=== PATIENT | male | born 1985 | race Hispanic/Latino ===

== ENCOUNTER 2017-06-19 16:41 | Emergency (ER) | payer SELFPAY ==
[2017-06-19 17:19] LABS: APPEARANCE,URINE Clear (CLEAR); BILIRUBIN,URINE Negative (NEGATIVE); COLOR,URINE Yellow (YELLOW); GLUCOSE, URINE (UA) >=1000 mg/dL (NEGATIVE); KETONES,URINE Negative (NEGATIVE); LEUKOCYTE ESTERASE ,URINE Trace (NEGATIVE); NITRATE,URINE Negative (NEGATIVE); OCCULT BLOOD,URINE Negative (NEGATIVE); PROTEIN,URINE Negative (NEGATIVE); UROBILINOGEN,URINE 0.2 mg/dL (0.2-1.0)
[2017-06-19 17:37] LABS: RBC,URINE 0-1 /HPF (0-1)
[2017-06-19 17:38] LABS: BACTERIA,URINE Rare /HPF (None Seen); SQUAMOUS EPITHELIAL CELL,UR Rare /LPF (0-2); YEAST,URINE BUDDING Few /HPF (None Seen)
== END 2017-06-19 18:30 | disposition home or self-care (01) ==
LOC: EDH 16:41
DX: N47.6 Balanoposthitis (principal)
CPT/HCPCS: 76770; 81001

== ENCOUNTER 2017-07-20 08:25 | Emergency (ER) | payer SELFPAY ==
[2017-07-20 08:47] LABS: APPEARANCE,URINE Cloudy (CLEAR); BILIRUBIN,URINE Negative (NEGATIVE); COLOR,URINE Yellow (YELLOW); GLUCOSE, URINE (UA) >=1000 mg/dL (NEGATIVE); KETONES,URINE Negative (NEGATIVE); LEUKOCYTE ESTERASE ,URINE Moderate (NEGATIVE); NITRATE,URINE Negative (NEGATIVE); OCCULT BLOOD,URINE Nonhemolyzed Trace (NEGATIVE); PH,URINE 5.5 (5.0-8.0); PROTEIN,URINE Negative (NEGATIVE); UROBILINOGEN,URINE 0.2 mg/dL (0.2-1.0)
[2017-07-20 08:53] LABS: BACTERIA,URINE Rare /HPF (None Seen); RBC,URINE 0-1 /HPF (0-1); SQUAMOUS EPITHELIAL CELL,UR Moderate /LPF (0-2)
[2017-07-20] MEDS ORDERED: DOXYCYCLINE HYCLATE 100 MG TABLET PO ONE (09:46)
[2017-07-20] MEDS ORDERED: CEFTRIAXONE SODIUM 500 MG VIAL ONE (09:46)
[2017-07-20] MEDS ORDERED: LIDOCAINE HCL-MPF 1% 2ML VIAL ONE (09:46)
[2017-07-20] MEDS ORDERED: AZITHROMYCIN 250 MG TABLET PO ONE (09:47)
== END 2017-07-20 10:12 | disposition home or self-care (01) ==
LOC: EDH 08:25
DX: N39.0 Urinary tract infection, site not specified (principal); N48.1 Balanitis; R73.9 Hyperglycemia, unspecified; R03.0 Elevated blood-pressure reading, without diagnosis of hypertension
CPT/HCPCS: 81001; 82948; 87088; 87486; 87797; 96372; 99284; J0696; J3490

== ENCOUNTER 2019-05-18 09:20 | Emergency (ER) | payer OTHER ==
[2019-05-18 09:55] LABS: BASOPHILS % (AUTO) 0.8 % (0.0-5.0); EOSINOPHILS % (AUTO) 2.6 % (0.0-8.0); MEAN CORPUSCULAR HEMOGLOBIN 26.7 pg (27.0-33.0); MEAN CORPUSCULAR HGB CONC 32.8 g/dL (32.0-36.0); MEAN CORPUSCULAR VOLUME 81.5 fL (79-99); MONOCYTES % (AUTO) 7.2 % (3.0-13.0); NEUTROPHILS % (AUTO) 67.4 % (40.0-77.0); NUCLEATED RED BLOOD CELLS 0.1 % (0.0-0.19); PLATELET COUNT (AUTO) 289 K/uL (130-400); RED BLOOD CELL COUNT(AUTO) 5.89 MIL/uL (4.50-6.20); RED CELL DISTRIBUTION WIDTH 13.9 % (11.0-15.5); WHITE BLOOD COUNT (AUTO) 11.5 K/uL (4.8-10.8)
[2019-05-18 09:58] LABS: APPEARANCE,URINE CLEAR (CLEAR); BILIRUBIN,URINE NEGATIVE (NEGATIVE); COLOR,URINE YELLOW (YELLOW); GLUCOSE, URINE (UA) >=1000 mg/dL (NEGATIVE); KETONES,URINE NEGATIVE (NEGATIVE); LEUKOCYTE ESTERASE ,URINE NEGATIVE (NEGATIVE); NITRATE,URINE NEGATIVE (NEGATIVE); OCCULT BLOOD,URINE NEGATIVE (NEGATIVE); PROTEIN,URINE NEGATIVE (NEGATIVE); UROBILINOGEN,URINE 0.2 mg/dL (0.2-1.0)
[2019-05-18 10:06] LABS: RAPID GROUP A STREP NEGATIVE (NEGATIVE)
[2019-05-18 10:07] LABS: CREATININE 0.7 mg/dL (0.5-1.5); POTASSIUM 4.1 mmol/L (3.5-5.1)
[2019-05-18 10:12] LABS: ALBUMIN 3.4 g/dL (3.5-5.0); BILIRUBIN,TOTAL 0.4 mg/dL (0.2-1.0)
[2019-05-18 10:28] LABS: BACTERIA,URINE Few /HPF (None Seen)
[2019-05-18 10:29] LABS: RBC,URINE 0-1 /HPF (0-1)
[2019-05-18 10:30] LABS: YEAST,URINE BUDDING Moderate /HPF (None Seen)
[2019-05-18] MEDS ORDERED: BENZONATATE 100 MG CAPSULE PO ONE (10:55)
== END 2019-05-18 11:24 | disposition home or self-care (01) ==
LOC: EDH 09:20
DX: R05 Cough (principal); J34.89 Other specified disorders of nose and nasal sinuses
CPT/HCPCS: 36415; 71046; 80053; 81001; 85025; 87804; 87880

== ENCOUNTER 2020-08-14 16:41 | Emergency (ER) | payer OTHER ==
[2020-08-14] MEDS ORDERED: SODIUM CHLORIDE 0.9% 1000ML 1,000 ML IV ONE (18:02)
[2020-08-14] MEDS ORDERED: CEFTRIAXONE SODIUM 1 GM ONE (18:03)
[2020-08-14] MEDS ORDERED: ONDANSETRON HCL 4 MG/2 ML VIAL ONE (18:03)
[2020-08-14] MEDS ORDERED: PHENAZOPYRIDINE HCL 200 MG TABLET ONE (18:04)
[2020-08-14] MEDS ORDERED: ACETAMINOPHEN 325 MG TAB ONE (18:04)
[2020-08-14] MEDS ORDERED: KETOROLAC TROMETHAMINE 30MG/ML ONE (18:04)
[2020-08-14 18:10] LABS: BASOPHILS % (AUTO) 0.6 % (0.0-5.0); EOSINOPHILS % (AUTO) 1.2 % (0.0-8.0); HEMATOCRIT 46.9 % (42-54); LYMPHOCYTES % (AUTO) 18.5 % (21.0-51.0); MEAN CORPUSCULAR HEMOGLOBIN 26.7 pg (27.0-33.0); MEAN CORPUSCULAR HGB CONC 32.4 g/dL (32.0-36.0); MEAN CORPUSCULAR VOLUME 82.4 fL (79-99); MONOCYTES % (AUTO) 8.9 % (3.0-13.0); NEUTROPHILS % (AUTO) 70.4 % (40.0-77.0); PLATELET COUNT (AUTO) 333 K/uL (130-400); RED BLOOD CELL COUNT(AUTO) 5.69 MIL/uL (4.50-6.20); RED CELL DISTRIBUTION WIDTH 13.2 % (11.0-15.5); WHITE BLOOD COUNT (AUTO) 14.4 K/uL (4.8-10.8)
[2020-08-14 18:24] LABS: CREATININE 1.1 mg/dL (0.5-1.5); POTASSIUM 3.7 mmol/L (3.5-5.1)
[2020-08-14 18:28] LABS: APPEARANCE,URINE CLOUDY (CLEAR); BILIRUBIN,URINE NEGATIVE (NEGATIVE); COLOR,URINE RED (YELLOW); GLUCOSE, URINE (UA) >=1000 mg/dL (NEGATIVE); KETONES,URINE 15 mg/dL (NEGATIVE); LEUKOCYTE ESTERASE ,URINE MODERATE (NEGATIVE); NITRATE,URINE POSITIVE (NEGATIVE); OCCULT BLOOD,URINE LARGE (NEGATIVE); PROTEIN,URINE >=300 mg/dL (NEGATIVE)
[2020-08-14 18:29] LABS: ALBUMIN 3.6 g/dL (3.5-5.0); BILIRUBIN,TOTAL 0.3 mg/dL (0.2-1.0)
[2020-08-14 19:21] LABS: BACTERIA,URINE Rare /HPF (None Seen); RBC,URINE TNTC /HPF (0-1); SQUAMOUS EPITHELIAL CELL,UR None Seen /HPF (0-2)
== END 2020-08-14 19:55 | disposition home or self-care (01) ==
LOC: EDH 16:41
DX: N39.0 Urinary tract infection, site not specified (principal); E11.9 Type 2 diabetes mellitus without complications; Z72.0 Tobacco use
CPT/HCPCS: 36415; 74176; 80053; 81001; 85025; 87088; 96365; 96375; 99284; J0696; J1885; J2405; J7030